=== PATIENT | female | born 1950 | race Caucasian/White ===

== ENCOUNTER 2021-02-28 18:36 | Emergency (ER) | payer MEDICARE ==
[2021-02-28] MEDS ORDERED: Diphtheria/Tetanus Toxoids,Adult (Td) 0.5 ML SDV IM ONE (18:59)
--- NOTE | 2021-02-28 19:52 | ER ---
REASON FOR EMERGENCY ROOM VISIT: Scalp lacerations x2. HISTORY: This 70-year-old woman was brought in by ambulance after suffering a fall, in which she sustained laceration to her scalp and her face anterior to her left ear. Apparently, she and her were climbing down some rocks to view some nearby waterfalls when she slipped on the rocks and fell and struck the left side of her head. She did not suffer any loss of consciousness or blurred vision. Denies any weakness or numbness. Does not have any nausea or vomiting. She has been alert and talkative throughout the whole ordeal. She was brought here by ambulance and arrived approximately 1.5 hours after the incident. Her last tetanus toxoid was given in 2007. PAST MEDICAL HISTORY: 1. Hypothyroidism. 2. Hypertension. 3. Hypercholesterolemia. 4. Hysterectomy. 5. Repair of rectocele. MEDICATIONS: See EMR. She is on 1 baby aspirin a day, but no anticoagulants. ALLERGIES: NONE TO MEDICATIONS. REVIEW OF SYSTEMS: Pertinent positives and negatives as listed in the HPI. PHYSICAL EXAMINATION: GENERAL: She is awake and alert. VITAL SIGNS: Her initial blood pressure on arrival was 201/98 and subsequently, it was in the 180/90 range when it was checked 15 minutes later. Heart rate was 70, respiratory rate is 20, O2 sats 95%. She is afebrile. HEENT: She has a 1 cm laceration that is clean and located in the left temporal scalp area, it is somewhat posterior to the left ear. There is no palpable bony crepitus. There is no hematoma detectable. A couple of centimeters anterior to her left ear, she does have an identical- sized laceration measuring approximately 8 mm. It is clean and the skin edges are oozing slightly. Both TMs were visualized. There is no evidence of hemotympanum. She does have some blood in her external auditory canal on the left side from her laceration. There is no malocclusion detectable. NEUROLOGIC: Cranial nerves 2 through 12 are intact. Pupils are equally round and reactive to light. Muscle strength, bulk, and tone are normal. Sensation is normal to crude touch. IMPRESSION: Scalp lacerations x2 (see above). FURTHER EMERGENCY ROOM COURSE: The lacerations were cleansed with Hibiclens and water. I discussed suture versus pita to close these lacerations and she thought pita were very sensible. 1% Xylocaine was injected, approximately 2 mL total. This was without epinephrine. The skin edges were approximated with 2 stainless steel pita in each laceration, which gave good wound closure. She was instructed regarding wound care, symptoms and signs of infection, and instructed to have her pita removed next week, Thursday or . All questions were answered. They understand and agree. RASHMI/LAMIN /[id number]
== END 2021-02-28 19:12 | disposition home or self-care (01) ==
LOC: LB.ED 18:36
DX: S01.01XA Laceration without foreign body of scalp, initial encounter (principal); I10 Essential (primary) hypertension; Z23 Encounter for immunization; W01.198A Fall on same level from slipping, tripping and stumbling with subsequent striking against other object, initial encounter
CPT/HCPCS: 12001; 90471; 90714; 99283-25; A0425; A0429